=== PATIENT | female | born 1990 | race Caucasian/White ===

== ENCOUNTER 2017-06-05 02:51 | Emergency (ER) | payer SELFPAY ==
--- NOTE | 2017-06-05 02:55 | DR.GENAD ---
HPI - HPI Comment HPI Comment: GETTING BIG. NO FEVER OR DRAINAGE. PT DID COLD COMPRESSES AT HOME. MADE CONDITION D - Complaint/Symptoms Chief Complaint Doctors Comments: BASCESS RT NECK TIMES 3 DAYS. - Nurses notes reviewed Nurses Notes Review: Yes - Source History Provided: Patient - Mode of Arrival Mode of Arrival: Ambulatory - Timing Came on: Suddenly - Duration Duration: Constant Duration: Days - Severity Severity: Moderate ROS - Review of Systems Constitutional: No Symptoms Reported. negative: Chills, Fever, Weakness, Fatigue Eyes: No Symptoms Reported ENTM: No Symptoms Reported Respiratoy: No Symptoms Reported Cardiovascular: No Symptoms Reported Gastrointestinal/Abdominal: No Symptoms Reported Genitourinary: No Symptoms Reported Neurological: No Symptoms Reported Musculoskeletal: Neck Pain (RIGHT LOWER NECK SWELLING, REDNEE AND PAIN.) Integumentary: Other (REDNESS AND SWELLING RT LOWER NECK) Hematologic/Lymphatic: No Symptoms Reported Endocrine: No Symptoms Reported All Other Systems: Reviewed and Negative PE - Vital Signs Vitals: Temperature 98.7 F Pulse Rate 132 Respiratory Rate 25 Blood Pressure 130/84 O2 Sat by Pulse Oximetry 100 - General Limitations: No Limitations General Appearance: Alert - Head Head Exam: Normal Inspection - Eyes Eye exam: Normal Appearance - ENT ENT Exam: Normal External Ear Exam External Ear Exam: Normal External Inspection Nose Exam: Normal Nose Exam Throat Exam: Normal Inspection - Neck Neck Exam: Trachea Midline, Other (RIGHT NECK ABSCES SIZE OF AMADOR EGG.). negative: Tenderness, Meningismus, Lymphadenopathy - Chest Chest Inspection: Symmetric Chest Wall Rise - Respiratory Respiratory Exam: Normal Lung Sounds Bilat Respiratory Exam: Bilateral Clear to Auscultation - Cardiovascular Cardiovascular Exam: Regular Rate, Normal Rhythm, Normal Heart Sounds - Abdominal Exam Abdominal Exam: Normal Inspection - Extremities Extremities Exam: Normal Inspection - Back Back Exam: Normal Inspection - Neurologic Neurological Exam: Alert, Oriented X3 - Psychiatric Psychiatric Exam: Normal Affect, Normal Mood - Skin Skin Exam: Erythema MDM - Differential Diagnosis Differential Diagnosis: ABSCESS RIGHT NECK, CELLULITIS RT NECK. Course - Treatment Treatment: SEE ORDERS. I&D DONE IN ED. - Education/Counseling Education/Counseling: Patient, Education Educated On: Diagnosis, Needs for Follow Up Procedures - Incision and Drainage Blade Size: 11 I & D Procedure: betadine prep, gauze wick placed Progress: 3CC PUS DRAIN FROM ABSCESS. - Diagnosis Discharge Problem: Abscess Cellulitis Qualifiers: Site of cellulitis: neck Qualified Code(s): L03.221 - Cellulitis of neck - Discharge Plan Disposition: 01 HOME, SELF-CARE Condition: Stable Prescriptions: Ibuprofen [MOTRIN TAB 600 MG *] 600 mg PO TID PRN #30 tab PRN Reason: Pain/Inflammation Sulfamethoxazole-Trimethoprim [BACTRIM DS TAB 800/160 MG *] 1 tab PO BID #20 tab - Follow ups/Referrals Follow ups/Referrals: LEE ANN GUILLORY [STAFF PHYSICIAN] - 1 day Vinh Franco [STAFF PHYSICIAN] - 1 day NFD,None [Primary Care Provider] - 1 day - Instructions Instructions: Cellulitis, Adult, [id number], Percutaneous Abscess Drain, Care After Additional Instructions: RETURN TO ED IF WORSE.
[2017-06-05 02:57] VITALS: BP 130/84; BMI 24.7
[2017-06-05] MEDS ORDERED: XYLOCAINE 1 % (PLAIN) ONE (03:40)
[2017-06-05] MEDS ORDERED: BACTRIM DS TAB PO ONE ×2 (04:40→04:43)
[2017-06-05] MEDS ORDERED: MOTRIN TAB 800 MG PO ONE ×2 (04:40→04:43)
== END 2017-06-05 04:45 | disposition home or self-care (01) ==
LOC: ER 02:51
PROC: 0W963ZZ Drainage of Neck, Percutaneous Approach (ICD-10-PCS; principal; 2017-06-05)
DX: L02.11 Cutaneous abscess of neck (principal); L03.221 Cellulitis of neck
CPT/HCPCS: 10060; 87070; 87075; 87077; 87205; 99282; 99283; J2001